=== PATIENT | male | born 1990 | race Caucasian/White ===

== ENCOUNTER 2020-08-30 11:25 | Emergency (ER) | payer OTHER ==
[2020-08-30 12:51] LABS: BASOPHIL 0.3 % (0-2); EOSINOPHIL 0.1 % (0-5); HCT 46.9 % (42.0-52.0); HGB 15.2 g/dl (13.2-18.0); LYMPHOCYTE 15.3 % (15-48); MCH 29.5 pg (25.0-31.0); MCHC 32.4 g/dL (32.0-36.0); MCV 91.1 fL (78.0-100.0); MONOCYTE 3.8 % (0-12); MPV 9.9 fL (6.0-9.5); NEUTROPHIL 80.2 % (41-80); NRBC 0; PLT 222 K/uL (150-400); RBC 5.15 M/uL (4.70-6.00); RDW 12.7 % (11.5-14.0); WBC 7.2 K/uL (4.0-10.5)
[2020-08-30 12:58] LABS: BILIRUBIN 1+ mg/dL (NEGATIVE); BLOOD NEGATIVE Ery/uL (NEGATIVE); CLARITY CLEAR (CLEAR); COLOR YELLOW (YELLOW); GLUCOSE (U) NORMAL (NORMAL); LEUKOCYTES NEGATIVE Leu/uL (NEGATIVE); NITRITE NEGATIVE (NEGATIVE); PROTEIN TRACE (LOW) mg/dL (NEGATIVE); SPECIFIC GRAVITY 1.025 (1.001-1.030); UROBILINOGEN 0.2 mg/dL (0.2-1.0)
[2020-08-30 13:03] LABS: BACTERIA TRACE; MUCOUS TRACE
[2020-08-30 13:08] LABS: ALBUMIN 4.3 g/dL (3.4-5.0); BILIRUBIN - TOTAL 0.4 mg/dL (0.2-1.0); BUN/CREAT RATIO (CALC) 14.9 RATIO; CREATININE 0.74 mg/dL (0.67-1.17); POTASSIUM 4.6 mmol/L (3.5-5.1); TOTAL PROTEIN 8.3 g/dL (6.4-8.2)
[2020-08-30] MEDS ORDERED: BENTYL10 MG PO (14:34)
[2020-08-30] MEDS ORDERED: ONDANSETRON ODT4 MG PO (14:34)
== END 2020-08-30 15:54 | disposition home or self-care (01) ==
LOC: FER 11:25
PROVIDERS: Emergency Medicine
DX: K52.9 Noninfective gastroenteritis and colitis, unspecified (principal); Z98.890 Other specified postprocedural states
CPT/HCPCS: 36415; 80053; 81001; 85025; Q9967